=== PATIENT | female | born 1940 | race Two or more races ===

== ENCOUNTER 2018-11-24 12:31 | Emergency (ER) | payer BC, OTHER ==
[2018-11-24] MEDS ORDERED: SODIUM CHLORIDE 1,000 ML IV ONE (13:27)
[2018-11-24] MEDS ORDERED: ONDANSETRON 4 MG/2 ML VIAL IVPB ONE (13:27)
[2018-11-24] MEDS ORDERED: FAMOTIDINE 20 MG/50 ML IVPB 20 MG/50 ML MG IVPB ONE ×2 (13:27→13:52)
[2018-11-24] MEDS ORDERED: ACETAMINOPHEN 1000 MG/100 ML VIAL (NON FORMULARY) IVPB ONE (13:28)
[2018-11-24] MEDS ORDERED: ONDANSETRON 4 MG/2 ML VIAL ONE (13:34)
[2018-11-24] MEDS ORDERED: ACETAMINOPHEN INJECTION 100 ML IVPB ONE (13:34)
--- NOTE | 2018-11-24 13:47 | PDOC ---
History of Present Illness - General Chief Complaint: Nausea/Vomiting Stated Complaint: VOMITING,ABD PAIN Time Seen by Provider: 11/24/18 12:44 Past History - Past Medical History Allergies/Adverse Reactions: Allergies Allergy/AdvReac Type Severity Reaction Status Date / Time No Known Allergies Allergy Verified 01/29/16 14:12 Home Medications: Ambulatory Orders Albuterol Sulfate Inhaler - [Ventolin HFA Inhaler -] 2 inh IH Q4H PRN #1 inh Clobetasol Propionate [Temovate] 60 gm TP BID #1 oint...g. 01/29/16 COPD: No Other medical history: no medical problems - Surgical History Abdominal Surgery: Yes Appendectomy: Yes Cholecystectomy: Yes - Suicide/Smoking/Psychosocial Hx Smoking Status: No Smoking History: Never smoked Have you smoked in the past 12 months: No Number of Cigarettes Smoked Daily: 0 Information on smoking cessation initiated: No Hx Alcohol Use: No Drug/Substance Use Hx: No Review of Systems - Review of Systems Constitutional: No: Chills, Fever Respiratory: No: Cough, Shortness of Breath Cardiac (ROS): Yes: Lightheadedness, Syncope. No: Chest Pain, Edema, Palpitations ABD/GI: Yes: Constipated, Nausea, Vomiting : No: Dysuria, Frequency Neurological: No: Headache All Other Systems: Reviewed and Negative *Physical Exam - Vital Signs Last Vital Signs Temp Pulse Resp BP Pulse Ox 97.7 F 53 L 16 109/71 100 11/24/18 12:31 11/24/18 12:31 11/24/18 12:31 11/24/18 12:31 11/24/18 12:31 Moderate Sedation - Procedure Monitoring Vital Signs: Procedure Monitoring Vital Signs Temperature 97.7 F 11/24/18 12:31 Pulse Rate 53 L 11/24/18 12:31 Respiratory Rate 16 11/24/18 12:31 Blood Pressure 109/71 11/24/18 12:31 O2 Sat by Pulse Oximetry (%) 100 11/24/18 12:31 ED Treatment Course - RADIOLOGY Radiology Studies Ordered: Category Date Time Status HEAD CT WITHOUT CONTRAST [CT] Stat CT Scan 11/24/18 13:30 Ordered Medical Decision Making - Medical Decision Making 11/24/18 13:41 78-year-old female with no severe past medical history presents with intractable nausea/vomiting since yesterday and lightheadedness/syncope. Patient reports onset of epigastric discomfort that has been persistent, associated with multiple episodes of nonbloody nonbilious emesis and inability to tolerate food or drink. Baseline constipation but had a bowel movement last night that was nonbloody, no fevers or chills or urinary complaints. In the setting of this dehydration patient has been lightheaded and has had syncopal episodes following vomiting, denies any injury or headache. No recent travel, no diet change, no recent antibiotics. No excessive alcohol or NSAID use, believes she had endoscopy in the past but never on PPI. Vitals are within normal limits Well-appearing, no jaundice or pallor Dry mucosa Heart is regular, lungs are clear Abdomen is soft/nontender/nondistended, no guarding or rebound, bowel sounds are normal, no CVA tenderness Exam is atraumatic 78-year-old female with nausea/vomiting/epigastric pain since yesterday, likely orthostatic/vasovagal episodes associated with the dehydration. Has history of cholecystectomy and appendectomy, question dyspepsia/gastritis versus pancreatitis, lower suspicion for obstruction or small/large bowel disease. Labs, ua EKG Antacid, antiemetic, IV fluids No indication for emergent imaging at this time, we'll reassess. *DC/Admit/Observation/Transfer Diagnosis at time of Disposition: Nausea and vomiting Qualifiers: Vomiting type: unspecified Vomiting Intractability: non-intractable Qualified Code(s): R11.2 - Nausea with vomiting, unspecified - Discharge Dispostion Condition at time of disposition: Fair - Referrals - Patient Instructions - Post Discharge Activity
[2018-11-24 13:56] LABS: BASO % 0.1 % (0-2.0); HEMATOCRIT 37.7 % (32.4-45.2); HEMOGLOBIN 12.9 GM/dL (10.7-15.3); LYMPH % 6.8 % (8-40); MCH 31.5 pg (25.7-33.7); MCHC 34.2 g/dl (32.0-36.0); MEAN CELL VOLUME 92.2 fl (80-96); MEAN PLT VOLUME 8.5 fl (7.5-11.1); MONO % 3.1 % (3.8-10.2); PLATELET COUNT 325 K/MM3 (134-434); RBC 4.09 M/mm3 (3.60-5.2); RDW 14.5 % (11.6-15.6); WHITE BLOOD COUNT 9.7 K/mm3 (4.0-10.0)
[2018-11-24 14:25] LABS: ALBUMIN 4.1 g/dl (3.4-5.0); ALK PHOS 79 U/L (45-117); ANION GAP 10 MMOL/L (8-16); BILIRUBIN,TOTAL 0.5 mg/dL (0.2-1); BLOOD UREA NITROGEN 23 mg/dL (7-18); CALCIUM 9.6 mg/dL (8.5-10.1); CHLORIDE 100 mmol/L (98-107); CO2 26 mmol/L (21-32); CREATININE 1.7 mg/dL (0.55-1.3); GLUCOSE,RANDOM 136 mg/dL (74-106); LIPASE 284 U/L (73-393); POTASSIUM 4.8 mmol/L (3.5-5.1); SGOT/AST 118 U/L (15-37); SGPT/ALT 38 U/L (13-61); SODIUM 136 mmol/L (136-145); TOT PROT 7.9 g/dl (6.4-8.2)
[2018-11-24 14:33] VITALS: TEMP 97.7; BMI 27.4
--- NOTE | 2018-11-24 15:30 | PDOC ---
Documentation entered by Candice Villa SCRIBE, acting as scribe for Hal Robbins MD. History of Present Illness - General Chief Complaint: Nausea/Vomiting Stated Complaint: VOMITING,ABD PAIN Time Seen by Provider: 11/24/18 12:44 History Source: Patient Exam Limitations: No Limitations - History of Present Illness Initial Comments: 11/24/18 13:43 The patient is a 78 year old female, with no significant past medical history, who presents to the emergency department with 2 days of epigastric pain, nausea , vomiting with associated syncopal episodes after vomiting today. She states her abdominal pain began first around 4PM yesterday. She reports the pain is localized to her epigastric region without radiation and has remained constant since onset. She reports developing nausea shortly after and reports numerous episodes of NBNB emesis. She reports loss of consciousness after feeling flushed after vomiting today. She states she passed out a couple of times after vomiting and wakes up on the floor. She states she had been constipated but reports a BM last night which was normal. She denies sick contacts. She denies any other complaints. The patient denies chest pain, shortness of breath, headache and dizziness. The patient denies fever, chills, diarrhea. The patient denies dysuria, frequency, urgency and hematuria. Allergies: NKDA Past surgical history: appendectomy and cholecystectomy (2011), Endoscopy +5yrs ago Social history: denies toxic habits Past History - Past Medical History Allergies/Adverse Reactions: Allergies Allergy/AdvReac Type Severity Reaction Status Date / Time No Known Allergies Allergy Verified 01/29/16 14:12 Home Medications: Ambulatory Orders NK [No Known Home Medication] 11/24/18 COPD: No Other medical history: no medical problems - Surgical History Abdominal Surgery: Yes Appendectomy: Yes Cholecystectomy: Yes - Suicide/Smoking/Psychosocial Hx Smoking Status: No Smoking History: Never smoked Have you smoked in the past 12 months: No Number of Cigarettes Smoked Daily: 0 Information on smoking cessation initiated: No Hx Alcohol Use: No Drug/Substance Use Hx: No Review of Systems - Review of Systems Able to Perform ROS?: Yes Constitutional: No: Chills, Fever Respiratory: No: Cough, Shortness of Breath Cardiac (ROS): Yes: Lightheadedness, Syncope. No: Chest Pain, Palpitations ABD/GI: Yes: Constipated, Nausea, Vomiting : No: Dysuria, Frequency Neurological: No: Headache All Other Systems: Reviewed and Negative *Physical Exam - Vital Signs Last Vital Signs Temp Pulse Resp BP Pulse Ox 97.7 F 53 L 16 109/71 100 11/24/18 12:31 11/24/18 12:31 11/24/18 12:31 11/24/18 12:31 11/24/18 12:31 - Physical Exam Comments: 11/24/18 13:48 GENERAL: The patient is awake, alert, and fully oriented, in no acute distress. HEAD: Normal with no signs of trauma. EYES: Pupils equal, round and reactive to light, extraocular movements intact, sclera anicteric, conjunctiva clear with no pallor. ENT: Ears normal, nares patent, oropharynx clear without exudates. Moist mucous membranes. NECK: Normal range of motion, supple without lymphadenopathy, JVD, or masses. LUNGS: Breath sounds equal, clear to auscultation bilaterally. No wheeze/ crackles. HEART: Regular rate and rhythm, normal S1 and S2 without murmur or rub. ABDOMEN: (+) mild epigastric tenderness. Soft/nondistended. BS wnl. No guarding or rebound. No palpable masses. No hepatosplenomegaly. EXTREMITIES: Normal range of motion, no edema. No clubbing or cyanosis. No cords, erythema, or tenderness. NEUROLOGICAL: Cranial nerves II through XII grossly intact. Normal speech, normal gait. PSYCH: Normal mood, normal affect. SKIN: Warm, Dry, normal turgor, no rashes or lesions noted. Moderate Sedation - Procedure Monitoring Vital Signs: Procedure Monitoring Vital Signs Temperature 97.7 F 11/24/18 12:31 Pulse Rate 53 L 11/24/18 12:31 Respiratory Rate 16 11/24/18 12:31 Blood Pressure 109/71 11/24/18 12:31 O2 Sat by Pulse Oximetry (%) 100 11/24/18 12:31 ED Treatment Course - LABORATORY CBC & Chemistry Diagram: 11/24/18 13:20 11/24/18 13:20 - ADDITIONAL ORDERS Additional order review: Laboratory Results 11/24/18 13:20 Sodium 136 Potassium 4.8 Chloride 100 Carbon Dioxide 26 Anion Gap 10 BUN 23 H Creatinine 1.7 H Creat Clearance w eGFR 29.07 Random Glucose 136 H Calcium 9.6 Total Bilirubin 0.5 AST 118 H ALT 38 Alkaline Phosphatase 79 Total Protein 7.9 Albumin 4.1 Lipase 284 11/24/18 13:20 RBC 4.09 MCV 92.2 MCHC 34.2 RDW 14.5 MPV 8.5 Neutrophils % 90.0 H Lymphocytes % 6.8 L Monocytes % 3.1 L Eosinophils % 0.0 Basophils % 0.1 - RADIOLOGY Radiology Studies Ordered: Category Date Time Status ABDOMEN & PELVIS CT W/O CONTR [CT] Stat CT Scan 11/24/18 15:[address] WITHOUT CONTRAST [CT] Stat CT Scan 11/24/18 14:15 Completed - Medications Given in the ED: ED Medications Discontinued Medications Generic Name Dose Route Start Last Admin Trade Name Freq PRN Reason Stop Dose Admin Acetaminophen 1,000 mg 11/24/18 13:28 11/24/18 13:51 Ofirmev Injection - IVPB 11/24/18 13:29 1,000 mg ONCE ONE Administration Famotidine/Sodium Chloride 20 mg in 50 mls @ 100 mls/hr 11/24/18 13:27 13:56 Pepcid 20 Mg Premixed Ivpb - IVPB 11/24/18 13:56 100 mls/hr ONCE ONE Administration Sodium Chloride 1,000 mls @ 1,000 mls/hr 11/24/18 13:27 11/24/18 13:51 Normal Saline - IV 11/24/18 14:26 1,000 mls/hr ONCE ONE Administration Ondansetron HCl 8 mg 11/24/18 13:27 11/24/18 13:51 Zofran Injection IVPB 11/24/18 13:28 8 mg ONCE ONE Administration Medical Decision Making - Critical Care Time Total Critical Care Time (minutes): 70 Critical Care Statement: The care of this patient involved high complexity decision making to prevent further life threatening deterioration of the patient 's condition and/or to evaluate & treat vital organ system(s) failure or risk of failure. - Medical Decision Making 11/24/18 13:41 78-year-old female with no severe past medical history presents with intractable nausea/vomiting since yesterday and lightheadedness/syncope. Patient reports onset of epigastric discomfort that has been persistent, associated with multiple episodes of nonbloody nonbilious emesis and inability to tolerate food or drink. Baseline constipation but had a bowel movement last night that was nonbloody, no fevers or chills or urinary complaints. In the setting of this dehydration patient has been lightheaded and has had syncopal episodes following vomiting, denies any injury or headache. No recent travel, no diet change, no recent antibiotics. No excessive alcohol or NSAID use, believes she had endoscopy in the past but never on PPI. Vitals are within normal limits Well-appearing, no jaundice or pallor Dry mucosa Heart is regular, lungs are clear Abdomen is soft/nontender/nondistended, no guarding or rebound, bowel sounds are normal, no CVA tenderness Exam is atraumatic 78-year-old female with nausea/vomiting/epigastric pain since yesterday, likely orthostatic/vasovagal episodes associated with the dehydration. Has history of cholecystectomy and appendectomy, question dyspepsia/gastritis versus pancreatitis, lower suspicion for obstruction or small/large bowel disease. r/o cardiac event though no focal sxs. Labs, ua EKG Antacid, antiemetic, IV fluids No indication for emergent imaging at this time, we'll reassess. 11/24/18 15:29 labs wnl, no leukocytosis, LFT and lipase normal. Cr 1.7 with normal K, no baseline. trop/ekg pending. feels slightly better, nausea improved proceed with ctap d/c to GI f/u if above without acute process 11/24/18 16:19 troponin returned as positive 10.2. stat ekg, asa, lipitor, brilinta, heparin admit, cards consult. 11/24/18 16:39 EKG with inferior Q waves and 1mm DURAN inferior leads with reciprocal precordial changes. declan stemi pager activated, will initiate transfer 11/24/18 16:51 discussed with STEPHANIE Tavarez and transfer initiated. 11/24/18 17:01 Discussed with cath attending Dr. Agustin Araiza. Reviewed EKG, given q waves and ongoing sxs for >24h, will defer emergent cath and proceed to CCU. recommends heparin drip, which is running. Pt vomited her lipitor/brilinta immediately (still whole pills). will give reglan, attempt to redose above. pending CCU bed availability. 11/24/18 17:25 redosed lipitor/brillinta. heparin running. ccu bed not available so will proceed to pit laborer then to CCU. HD unchanged, BP 108/61 so nitro held. EMS at bedside to transport to [facility] pit laborer, Dr. Araiza receiving. CTAP report without acute pathology, receiving team updated. *DC/Admit/Observation/Transfer Diagnosis at time of Disposition: Nausea and vomiting Qualifiers: Vomiting type: unspecified Vomiting Intractability: non-intractable Qualified Code(s): R11.2 - Nausea with vomiting, unspecified STEMI (ST elevation myocardial infarction) Qualifiers: Involved coronary artery: unspecified coronary artery Qualified Code(s): I21.3 - ST elevation (STEMI) myocardial infarction of unspecified site - Discharge Dispostion Condition at time of disposition: Fair - Referrals - Patient Instructions - Post Discharge Activity - Transfer to Acute Care Facility Receiving Facility: [facility] Accepting Physician:: Jose G (pit laborer/CCU) Hal Robbins MD: This documentation has been prepared by the Allen aguilera Amanda, SCRIBE, under my direction and personally reviewed by me in its entirety. I confirm that the documentation accurately reflects all work, treatment, procedures, and medical decision making performed by me.
[2018-11-24] MEDS ORDERED: HEPARIN NA (PORCINE) 5,000 UNITS/ML 1ML VIAL IVPUSH PRN ×2 (16:25)
[2018-11-24] MEDS ORDERED: HEPARIN NA (PORCINE) 5,000 UNITS/ML 1ML VIAL IVPUSH ONE (16:25)
[2018-11-24] MEDS ORDERED: HEPARIN INFUSION - 25,000 UNITS/500 ML INFUS.BAG IVPB SCH (16:30)
[2018-11-24] MEDS ORDERED: ASPIRIN 325 MG TABLET PO ONE (16:32)
[2018-11-24] MEDS ORDERED: ATORVASTATIN CA 80 MG TABLET (FP) PO ONE (16:32)
[2018-11-24] MEDS ORDERED: HEPARIN NA (PORCINE) 5,000 UNITS/ML 1ML VIAL ONE (16:40)
[2018-11-24] MEDS ORDERED: ASPIRIN 325 MG TABLET ONE (16:40)
[2018-11-24] MEDS ORDERED: HEPARIN INFUSION - 25,000 UNITS/500 ML INFUS.BAG IVPB ONE (16:40)
[2018-11-24] MEDS ORDERED: morphine CARPU-JECT 2 MG/1 ML DISP.SYRIN IVPUSH ONE (16:46)
[2018-11-24] MEDS ORDERED: TICAGRELOR 90 MG TABLET PO ONE ×3 (16:52→17:12)
[2018-11-24] MEDS ORDERED: TICAGRELOR 60 MG TABLET PO ONE (16:52)
[2018-11-24] MEDS ORDERED: MORPHINE SULFATE 2 MG/ML VIAL ONE (16:54)
[2018-11-24 16:59] VITALS: BP 106/61; PULSE 81
[2018-11-24] MEDS ORDERED: ASPIRIN 300 MG SUPP.RECT PR ONE (17:00)
[2018-11-24] MEDS ORDERED: METOCLOPRAMIDE HCL INJECTION 10 MG/2 ML VIAL ONE (17:01)
[2018-11-24] MEDS ORDERED: ASPIRIN 300 MG SUPP.RECT RC ONE (17:02)
[2018-11-24] MEDS ORDERED: HEPARIN SOD,PORK IN 0.45% NACL 25,000 UNIT/500 ML INFUS.BAG IVPB SCH (17:15)
[2018-11-24] MEDS ORDERED: TICAGRELOR 60 MG TABLET PO SCH (22:00)
--- NOTE | 2018-11-25 12:38 | EKG ---
Test Reason : Blood Pressure : / mmHG Vent. Rate : 053 BPM Atrial Rate : 053 BPM P-R Int : 190 ms QRS Dur : 088 ms QT Int : 454 ms P-R-T Axes : 067 -28 023 degrees QTc Int : 426 ms SINUS BRADYCARDIA INFERIOR-POSTERIOR INFARCT , AGE UNDETERMINED T WAVE ABNORMALITY, CONSIDER LATERAL ISCHEMIA ACUTE DC / STEMI Consider right ventricular involvement in acute inferior infarct ABNORMAL ECG WHEN COMPARED WITH ECG OF 07-JAN-2005 10:12, SIGNIFICANT CHANGES HAVE OCCURRED Confirmed by EMILY HILL, DARRIUS ([id number]) on 11/25/2018 12:38:06 PM Referred By: Confirmed By:DARRIUS DIAZ MD
== END 2018-11-24 17:20 | disposition short-term general hospital (02) ==
LOC: JER 12:31
PROC: 3E033GC Introduction of Other Therapeutic Substance into Peripheral Vein, Percutaneous Approach (ICD-10-PCS; principal; 2018-11-24)
PROC: 3E033GC Introduction of Other Therapeutic Substance into Peripheral Vein, Percutaneous Approach (ICD-10-PCS; 2018-11-24)
PROC: 3E033NZ Introduction of Analgesics, Hypnotics, Sedatives into Peripheral Vein, Percutaneous Approach (ICD-10-PCS; 2018-11-24)
PROC: 3E033NZ Introduction of Analgesics, Hypnotics, Sedatives into Peripheral Vein, Percutaneous Approach (ICD-10-PCS; 2018-11-24)
PROC: 3E033GC Introduction of Other Therapeutic Substance into Peripheral Vein, Percutaneous Approach (ICD-10-PCS; 2018-11-24)
PROC: 3E033GC Introduction of Other Therapeutic Substance into Peripheral Vein, Percutaneous Approach (ICD-10-PCS; 2018-11-24)
DX: I21.3 ST elevation (STEMI) myocardial infarction of unspecified site (principal)
CPT/HCPCS: 36415; 70450-TC; 74176-TC; 80053; 83690; 84484; 85025; 93005; 93010; 96365; 96366; 96367; 96375; 99283-25; J0131; J1644; J7030

== ENCOUNTER 2018-12-18 12:23 | Emergency (ER) | payer BC, OTHER ==
[2018-12-18 12:32] VITALS: BP 130/63; PULSE 64; TEMP 97.2; BMI 26.8
--- NOTE | 2018-12-18 13:04 | PDOC ---
History of Present Illness - General Stated Complaint: SENT BY PCP Time Seen by Provider: 12/18/18 12:37 History Source: Patient Exam Limitations: No Limitations - History of Present Illness Initial Comments: 12/18/18 12:59 Sent by PMD for evaluation of very small hematoma incurred from striking head and shower this morning. There was no LOC, no dizziness, mental status changes, no nausea or vomiting, patient states is not painful. Was seen by her PMD today who noted the hematoma and sent her to the emergency department for further evaluation and CAT scan. Patient takes daily aspirin and PMD was concerned about intracranial bleeding. Severity: Yes: moderate Associated Symptoms: reports: denies symptoms. denies: confusion, fatigue, loss of consciousness, nausea/vomiting Past History - Travel Traveled outside of the country in the last 30 days: No Close contact w/someone who was outside of country & ill: No - Past Medical History Allergies/Adverse Reactions: Allergies Allergy/AdvReac Type Severity Reaction Status Date / Time No Known Allergies Allergy Verified 12/18/18 12:31 Home Medications: Ambulatory Orders Aspirin [ASA -] 81 mg PO DAILY 12/18/18 COPD: No - Surgical History Abdominal Surgery: Yes Appendectomy: Yes Cardiac Surgery: Yes Cholecystectomy: Yes - Suicide/Smoking/Psychosocial Hx Smoking Status: No Smoking History: Never smoked Have you smoked in the past 12 months: No Number of Cigarettes Smoked Daily: 0 Information on smoking cessation initiated: No Hx Alcohol Use: No Drug/Substance Use Hx: No Review of Systems - Review of Systems Able to Perform ROS?: Yes Is the patient limited Austrian proficient: Yes Constitutional: Yes: See HPI. No: Symptoms Reported, Chills, Fever, Malaise HEENTM: No: Symptoms Reported Respiratory: No: Symptoms reported Musculoskeletal: Yes: Symptoms Reported Integumentary: Yes: See HPI, Bruising *Physical Exam - Vital Signs Last Vital Signs Temp Pulse Resp BP Pulse Ox 97.2 F L 64 18 130/63 100 12/18/18 12:25 12/18/18 12:25 12/18/18 12:25 12/18/18 12:25 12/18/18 12:25 - Physical Exam General Appearance: Yes: Nourished, Appropriately Dressed. No: Apparent Distress HEENT: positive: NENA, TMs Normal (O hemotympanum, no drainage from nose or ears , no evidence of skull fracture.), Other (2 cm soft hematoma, nontender to left mid forehead. No crepitus or step-offs, no orbital tenderness. No EOM, no nasal injury or drainage.) Neck: positive: Supple (no cervical spine tenderness, full range of motion). negative: Tender Respiratory/Chest: positive: Lungs Clear Musculoskeletal: positive: Normal Inspection. negative: Vertebral Tenderness Extremity: positive: Normal Capillary Refill Integumentary: positive: Normal Color, Dry, Warm Neurologic: positive: solution designer II-XII NML intact, Fully Oriented, Alert, Normal Mood/ Affect, Normal Response, Motor Strength 01/24 ED Treatment Course - RADIOLOGY Radiology Studies Ordered: Category Date Time Status HEAD CT WITHOUT CONTRAST [CT] Stat CT Scan 12/18/18 12:58 Ordered Progress Note - Progress Note Progress Note: CTSCan negative for intracranial pathology or bleed although noted significant ENT issues with polyps. Patient will follow-up with her PMD *DC/Admit/Observation/Transfer Diagnosis at time of Disposition: Superficial bruising - Discharge Dispostion Disposition: HOME Condition at time of disposition: Stable Decision to Admit order: No - Referrals - Patient Instructions Printed Discharge Instructions: DI for Contusion Additional Instructions: Rest, avoid strenuous activity or exercise for the next 24-48 hours May use ice on contusions as needed. May use Tylenol or Motrin for pain relief Watch and seek evaluation for changes in behavior including crankiness, inconsolability, quietness/ sleepiness that is inappropriate, tiredness that is inappropriate, watch for worsening and changes of behavior. Seek immediate evaluation/return to emergency department for vomiting, mental status changes, pain that's out of proportion , bloody drainage from ears or nose. Followup with private physician as needed in one to 2 days for reevaluation - Post Discharge Activity
== END 2018-12-18 13:50 | disposition home or self-care (01) ==
LOC: JERFT 12:23
DX: T14.8XXA Other injury of unspecified body region, initial encounter (principal); W22.01XA Walked into wall, initial encounter; Y93.E1 Activity, personal bathing and showering; Y92.091 Bathroom in other non-institutional residence as the place of occurrence of the external cause
CPT/HCPCS: 70450-TC; 99281-25

== ENCOUNTER 2020-12-08 05:22 | Day surgery (SDC) | payer BC, OTHER ==
[2020-12-07 09:44] VITALS: BMI 25.0
[2020-12-08] MEDS ORDERED: LIDOCAINE HCL 1%, 10 MG/ML (20ML VIAL) INF ONE (13:44)
[2020-12-08] MEDS ORDERED: BUPIVACAINE HCL/PF 0.5% (5 MG/ML) 30 ML VIAL IJ ONE (13:46)
[2020-12-08] MEDS ORDERED: IOHEXOL 180 MG/1 ML ML IJ ONE (13:47)
[2020-12-08 14:31] VITALS: BP 149/80; PULSE 50; TEMP 96.8
== END 2020-12-08 15:23 | disposition home or self-care (01) ==
LOC: JASU-SURG 05:22
PROVIDERS: ATTEND Pain Medicine Pain Medicine
PROC: BR14YZZ Fluoroscopy of Cervical Facet Joint(s) using Other Contrast (ICD-10-PCS; 2020-12-08)
PROC: 3E0T3BZ Introduction of Anesthetic Agent into Peripheral Nerves and Plexi, Percutaneous Approach (ICD-10-PCS; principal; 2020-12-08 12:00)
DX: M47.812 Spondylosis without myelopathy or radiculopathy, cervical region (principal)
CPT/HCPCS: 76000-TC-FY

== ENCOUNTER 2022-05-20 10:27 | Emergency (ER) | payer OTHER ==
[2022-05-20 11:06] VITALS: BMI 26.6
[2022-05-20 12:03] LABS: BASO % 0.4 % (0-2.0); EOS % 0.6 % (0-4.5); HEMATOCRIT 37.8 % (32.4-45.2); HEMOGLOBIN 12.7 GM/dL (10.7-15.3); LYMPH % 17.6 % (8-40); MCH 30.8 pg (25.7-33.7); MCHC 33.5 g/dl (32.0-36.0); MEAN CELL VOLUME 91.8 fl (80-96); MEAN PLT VOLUME 8.3 fl (7.5-11.1); MONO % 7.6 % (3.8-10.2); NEUT % 73.8 % (42.8-82.8); PLATELET COUNT 343 10^3/uL (134-434); RBC 4.12 M/mm3 (3.60-5.2); RDW 13.4 % (11.6-15.6); WHITE BLOOD COUNT 7.2 K/mm3 (4.0-10.0)
[2022-05-20 12:19] LABS: PROTHROMBIN TIME (PATIENT) 11.5 SEC (9.7-13.0)
[2022-05-20 12:22] LABS: ACTIVATED PTT 30.4 SECONDS (25.2-36.5); ALBUMIN 3.8 g/dl (3.4-5.0); BLOOD UREA NITROGEN 22.6 mg/dL (7-18); CALCIUM 9.9 mg/dL (8.5-10.1)
[2022-05-20 12:25] LABS: CREATININE 0.9 mg/dL (0.55-1.3)
[2022-05-20 12:26] LABS: BILIRUBIN,TOTAL 0.8 mg/dL (0.2-1); TOT PROT 7.3 g/dl (6.4-8.2)
[2022-05-20 14:03] LABS: PH,URINE 6.5 (5.0-8.0); URINE APPEARANCE CLEAR; URINE BILIRUBIN NEGATIVE (NEGATIVE); URINE COLOR YELLOW; URINE GLUCOSE (UA) NEGATIVE (NEGATIVE); URINE KETONE NEGATIVE (NEGATIVE); URINE LEUK ESTERASE NEGATIVE (NEGATIVE); URINE NITRITE NEGATIVE (NEGATIVE); URINE PROTEIN NEGATIVE (NEGATIVE); URINE UROBILINOGEN 0.2 mg/dL (0.2-1.0)
[2022-05-20 16:12] VITALS: BP 148/91; PULSE 54; RESP 16; TEMP 98
== END 2022-05-20 16:46 | disposition home or self-care (01) ==
LOC: JER 10:27
DX: U07.1 COVID-19 (principal)
CPT/HCPCS: 36415; 71045-TC-FY; 80053; 81003; 83605; 83690; 84484; 85025; 85610; 85730; 86850; 86900; 86901; 87086; 93005; 93010; 99285-25; C9803-CS; U0003; U0005

== ENCOUNTER 2022-08-07 14:30 | Inpatient (IN) | payer OTHER ==
[2022-08-07 14:59] VITALS: BMI 25.7
[2022-08-07] MEDS ORDERED: FAMOTIDINE 20 MG/50 ML IVPB 20 MG/50 ML MG IVPB ONE ×2 (17:18→18:44)
[2022-08-07] MEDS ORDERED: methylPREDNISolone NA SUCC 125 MG/2 ML VIAL IVPUSH ONE (17:18)
[2022-08-07] MEDS ORDERED: methylPREDNISolone NA SUCC 125 MG/2 ML VIAL ONE (18:44)
[2022-08-07 19:12] LABS: BASO % 1.1 % (0-2.0); EOS % 0.8 % (0-4.5); HEMATOCRIT 37.7 % (32.4-45.2); HEMOGLOBIN 12.7 GM/dL (10.7-15.3); LYMPH % 21.6 % (8-40); MCH 30.8 pg (25.7-33.7); MCHC 33.8 g/dl (32.0-36.0); MEAN CELL VOLUME 91.1 fl (80-96); MEAN PLT VOLUME 8.5 fl (7.5-11.1); MONO % 9.6 % (3.8-10.2); NEUT % 66.9 % (42.8-82.8); PLATELET COUNT 422 10^3/uL (134-434); RBC 4.13 M/mm3 (3.60-5.2); WHITE BLOOD COUNT 8.9 K/mm3 (4.0-10.0)
[2022-08-07 19:30] LABS: CALCIUM 10.4 mg/dL (8.5-10.1)
[2022-08-07 19:31] LABS: ALBUMIN 3.8 g/dl (3.4-5.0); BLOOD UREA NITROGEN 16.8 mg/dL (7-18)
[2022-08-07 19:34] LABS: CREATININE 1.1 mg/dL (0.55-1.3)
[2022-08-07 19:36] LABS: BILIRUBIN,TOTAL 0.8 mg/dL (0.2-1); TOT PROT 8.3 g/dl (6.4-8.2)
[2022-08-08] MEDS ORDERED: SODIUM CHLORIDE 1,000 ML IV SCH (01:45)
[2022-08-08 07:43] VITALS: BP 138/80; PULSE 55; RESP 18; TEMP 97.3
[2022-08-08] MEDS ORDERED: ENOXAPARIN NA (PORCINE) 40 MG/0.4 ML DISP.SYRIN SQ ONE (09:14)
[2022-08-08] MEDS ORDERED: HYDROCHLOROTHIAZIDE 25 MG TABLET (FP) ONE ×2 (09:14→10:28)
[2022-08-08] MEDS: HYDROCHLOROTHIAZIDE 12.5 MG CAPSULE (FP) PO SCH ×3 (09:15→10:27)
[2022-08-08] MEDS ORDERED: ENOXAPARIN NA (PORCINE) 40 MG/0.4 ML DISP.SYRIN SQ SCH (10:00)
[2022-08-08] MEDS ORDERED: methylPREDNISolone NA SUCC 40 MG/1 ML VIAL IVPUSH ONE (10:26)
[2022-08-08] MEDS ORDERED: methylPREDNISolone NA SUCC 40 MG/1 ML VIAL ONE (10:31)
[2022-08-08 10:50] LABS: HEMATOCRIT 38.9 % (32.4-45.2); MCH 30.6 pg (25.7-33.7); MCHC 33.4 g/dl (32.0-36.0); MEAN CELL VOLUME 91.5 fl (80-96); MEAN PLT VOLUME 8.5 fl (7.5-11.1); PLATELET COUNT 471 10^3/uL (134-434); RBC 4.25 M/mm3 (3.60-5.2); RDW 14.1 % (11.6-15.6); WHITE BLOOD COUNT 13.2 K/mm3 (4.0-10.0)
[2022-08-08 11:12] LABS: CALCIUM 10.3 mg/dL (8.5-10.1)
[2022-08-08 11:13] LABS: ALBUMIN 3.8 g/dl (3.4-5.0); BLOOD UREA NITROGEN 28.4 mg/dL (7-18)
[2022-08-08 11:14] LABS: MAGNESIUM 2.6 mg/dL (1.8-2.4)
[2022-08-08 11:16] LABS: CREATININE 1.2 mg/dL (0.55-1.3); PHOSPHOROUS 3.7 mg/dL (2.5-4.9)
[2022-08-08 11:17] LABS: BILIRUBIN,TOTAL 0.8 mg/dL (0.2-1); TOT PROT 8.6 g/dl (6.4-8.2)
[2022-08-08] MEDS ORDERED: ATORVASTATIN CA 40 MG TABLET (FP) PO SCH (22:00)
== END 2022-08-08 15:50 | disposition home or self-care (01) | DRG 916 ==
LOC: JER 14:30 → JERBED 18:24 → OBSVTOIN 08-08 00:41
PROVIDERS: ADMIT Internal Medicine; ATTEND Internal Medicine
DX: T78.3XXA Angioneurotic edema, initial encounter (principal); T46.4X5A Adverse effect of angiotensin-converting-enzyme inhibitors, initial encounter; I10 Essential (primary) hypertension; B33.8 Other specified viral diseases; B97.4 Respiratory syncytial virus as the cause of diseases classified elsewhere; R50.9 Fever, unspecified; E78.5 Hyperlipidemia, unspecified; I25.2 Old myocardial infarction; R73.03 Prediabetes
CPT/HCPCS: 0241U-QW; 36415; 70450-TC; 71046-TC-FY; 80053; 83735; 84100; 85025; 85027; 93005; 93010; 99285-25; G0378